=== PATIENT | male | born 2000 | race Caucasian/White ===

== ENCOUNTER 2020-09-01 16:54 | Emergency (ER) | payer SELFPAY ==
[2020-09-01] MEDS ORDERED: Ondansetron 4 MG/2 ML SDV IVPUSH ONE (17:14)
[2020-09-01] MEDS ORDERED: Sodium Chloride 0.9% 1,000 ML IV ONE (17:14)
--- NOTE | 2020-09-01 17:18 | EDM.PDOC ---
ED HPI GENERAL MEDICAL PROBLEM - General Chief Complaint: Gastrointestinal Problem Stated Complaint: POSSIBLE FOOD POISONING Time Seen by Provider: 09/01/20 17:06 Source of Information: Reports: Patient History Limitations: Reports: No Limitations - History of Present Illness INITIAL COMMENTS - FREE TEXT/NARRATIVE: Patient is a 20-year-old male who presents today for nausea vomiting for the past 3 days. Patient states that today he has been having some dry heaves not vomiting up anything he has not been tolerating since yesterday. Patient dates anytime he does eat something either come to the top or has watery diarrhea. Patient states he went to trip with his baseball team a few days ago on a roll and may have contracted something for new restaurants. Patient denies any abdominal pain urinary symptoms or other complaints. - Related Data Allergies Allergy/AdvReac Type Severity Reaction Status Date / Time No Known Allergies Allergy Verified 09/01/20 17:09 Home Meds: Home Meds . [No Known Home Meds] 09/01/20 [History] ED ROS GENERAL - Review of Systems Review Of Systems: See Below Constitutional: Reports: No Symptoms HEENT: Reports: No Symptoms Respiratory: Reports: No Symptoms Cardiovascular: Reports: No Symptoms Endocrine: Reports: No Symptoms GI/Abdominal: Reports: Diarrhea, Vomiting : Reports: No Symptoms Musculoskeletal: Reports: No Symptoms Skin: Reports: No Symptoms Neurological: Reports: No Symptoms Psychiatric: Reports: No Symptoms Hematologic/Lymphatic: Reports: No Symptoms Immunologic: Reports: No Symptoms ED EXAM, GI/ABD - Physical Exam Exam: See Below Exam Limited By: No Limitations General Appearance: Alert, WD/WN Respiratory/Chest: No Respiratory Distress, Lungs Clear, Normal Breath Sounds GI/Abdominal Exam: Normal Bowel Sounds, Soft, Non-Tender Extremities: Normal Inspection Neurological: Alert, Oriented Course - Vital Signs Last Recorded V/S: Last Vital Signs Temp 98.2 F 09/01/20 17:09 Pulse 100 09/01/20 17:09 Resp 16 09/01/20 17:09 BP 123/66 09/01/20 17:09 Pulse Ox 97 09/01/20 17:09 - Orders/Labs/Meds Orders: Active Orders 24 hr Category Date Time Status STOOL CULTURE/SHIGA TOXIN [MREF] Stat Lab 09/01/20 17:14 Ordered Labs: Laboratory Tests 03/21/21 03/21/21 Range/Units 17:24 17:24 WBC 5.69 (4.0-11.0) K/uL RBC 5.55 (4.50-5.90) M/uL Hgb 17.0 (13.0-17.0) g/dL Hct 48.6 (38.0-50.0) % MCV 87.6 (80.0-98.0) fL MCH 30.6 (27.0-32.0) pg MCHC 35.0 (31.0-37.0) g/dL RDW Std Deviation 38.5 (28.0-62.0) fl RDW Coeff of Andrés 12 (11.0-15.0) % Plt Count 207 (150-400) K/uL MPV 10.30 (7.40-12.00) fL Neut % (Auto) 79.3 (48.0-80.0) % Lymph % (Auto) 8.4 L (16.0-40.0) % [place] % (Auto) 11.8 (0.0-15.0) % Eos % (Auto) 0.5 (0.0-7.0) % Baso % (Auto) 0.0 (0.0-1.5) % Neut # (Auto) 4.5 (1.4-5.7) K/uL Lymph # (Auto) 0.5 L (0.6-2.4) K/uL [place] # (Auto) 0.7 (0.0-0.8) K/uL Eos # (Auto) 0.0 (0.0-0.7) K/uL Baso # (Auto) 0.0 (0.0-0.1) K/uL Nucleated RBC % 0.0 /100WBC Nucleated RBCs # 0 K/uL Sodium 138 (136-148) mmol/L Potassium 3.5 (3.5-5.1) mmol/L Chloride 102 (98-107) mmol/L Carbon Dioxide 23.7 (21.0-32.0) mmol/L BUN 18 (7.0-18.0) mg/dL Creatinine 1.2 (0.8-1.3) mg/dL Est Cr Clr Drug Dosing 106.88 mL/min Estimated GFR (MDRD) > 60.0 ml/min Glucose 115 H (74-106) mg/dL Calcium 8.7 (8.5-10.1) mg/dL Total Bilirubin 0.5 (0.2-1.0) mg/dL AST 17 (15-37) IU/L ALT 28 (14-63) IU/L Alkaline Phosphatase 67 (46-116) U/L Total Protein 7.3 (6.4-8.2) g/dL Albumin 3.6 (3.4-5.0) g/dL Globulin 3.7 (2.6-4.0) g/dL Albumin/Globulin Ratio 1.0 (0.9-1.6) Meds: Medications Discontinued Medications Generic Name Dose Route Start Last Admin Trade Name Freq PRN Reason Stop Dose Admin Sodium Chloride 1,000 mls @ 999 mls/hr 09/01/20 17:14 09/01/20 17:30 Normal Saline IV 09/01/20 18:14 999 mls/hr .BOLUS ONE Administration Ondansetron HCl 4 mg 09/01/20 17:14 09/01/20 17:30 Ondansetron 4 Mg/2 Ml Sdv IVPUSH 09/01/20 17:15 4 mg ONETIME ONE Administration - Re-Assessments/Exams Free Text/Narrative Re-Assessment/Exam: 09/02/20 07:12 And was tolerating p.o. states he feels better. Patient labs are still pending due to downtime. Patient be signed out with labs are okay patient can be discharged home with strict return precautions. Departure - Departure Time of Disposition: 19:00 Disposition: Still A Patient 30 Condition: Good Clinical Impression: Gastroenteritis - Discharge Information *PRESCRIPTION DRUG MONITORING PROGRAM REVIEWED*: Not Applicable *COPY OF PRESCRIPTION DRUG MONITORING REPORT IN PATIENT BRITTANY: Not Applicable Referrals: PCP,None [Primary Care Provider] - Forms: ED Department Discharge Sepsis Event Note (ED) - Evaluation Sepsis Screening Result: Possible Sepsis Risk - My Orders Last 24 Hours: My Active Orders 09/01/20 17:14 STOOL CULTURE/SHIGA TOXIN [MREF] Stat - Assessment/Plan Last 24 Hours: My Active Orders 09/01/20 17:14 STOOL CULTURE/SHIGA TOXIN [MREF] Stat Plan: Patient is a 20-year-old male who presents today for nausea vomiting. Patient likely has a viral gastroenteritis. Will send labs provide Zofran and give IV fluids and reassess.
[2020-09-01 17:50] LABS: BLOOD UREA NITROGEN,BUN 18 mg/dL (7.0-18.0); CARBON DIOXIDE,CO2 23.7 mmol/L (21.0-32.0); CHLORIDE,CL 102 mmol/L (98-107); GLUCOSE RANDOM 115 mg/dL (74-106); POTASSIUM,K 3.5 mmol/L (3.5-5.1); SODIUM,NA 138 mmol/L (136-148)
== END 2020-09-01 21:21 | disposition home or self-care (01) ==
LOC: MW.ED 16:54
DX: K52.9 Noninfective gastroenteritis and colitis, unspecified (principal)
CPT/HCPCS: 36415; 80053; 85025; 99284; J2405; J7030; 96374; 99283